=== PATIENT | male | born 1950 | race Caucasian/White ===

== ENCOUNTER 2021-08-01 06:41 | Day surgery (SDC) | payer MEDICARE ==
[~2021-08-01] VITALS: Ht 177.8 cm; Wt 81.2 kg
[2021-08-01] VITALS (15 sets, daily range): BP systolic 125–164; BP diastolic 63–88
[2021-08-01] MEDS ORDERED: normal saline 1000ml 1,000 ML IV SCH (07:05)
[2021-08-01] MEDS ORDERED: LOSA50TA64 PO (07:06)
[2021-08-01] MEDS ORDERED: ROSU10TA28 PO (07:06)
[2021-08-01] MEDS ORDERED: CARV6.253 PO (07:06)
[2021-08-01] MEDS ORDERED: ASPI-1071 PO (07:07)
[2021-08-01] MEDS ORDERED: LIDOcaine 1%/PF 5ML 10 MG/ML VIAL ONE (09:37)
[2021-08-01] MEDS ORDERED: midazolam 1 mg/ML 2ml injection ONE (09:37)
[2021-08-01] MEDS ORDERED: fentaNYL/PF 50MCG/1 ML 2ML syringe ONE (09:37)
[2021-08-01] MEDS ORDERED: sodium chloride 0.45% 1,000 ML IV SCH (10:20)
== END 2021-08-01 14:14 | disposition home or self-care (01) ==
LOC: SSTAY O 06:41
PROVIDERS: ATTEND Radiology Diagnostic Radiology
DX: C45.7 Mesothelioma of other sites (principal); I10 Essential (primary) hypertension; E78.00 Pure hypercholesterolemia, unspecified; Z79.82 Long term (current) use of aspirin; Z79.899 Other long term (current) drug therapy; Z77.090 Contact with and (suspected) exposure to asbestos
CPT/HCPCS: 32408; 71045; J2250; J3010; J3490; 77012; 88305; 88341; 88342

== ENCOUNTER 2024-03-24 09:43 | Outpatient (CLI) | payer OTHER ==
[~2024-03-24] VITALS: Ht 172.7 cm; Wt 86.2 kg
[~2024-03-24 09:43] MED LIST: ASPI-1071 PO; CARV6.253 PO; LOSA50TA64 PO; ROSU10TA72 PO
[2024-03-24] MEDS: albuterol 2.5 MG/3 ML nebule NEB ONE (10:40)
[2024-03-24 10:41] VITALS: PULSE 76; RESP 15; O2SAT 97
[2024-03-24 10:52] VITALS: PULSE 75; RESP 14
== END 2024-03-24 23:59 | disposition home or self-care (01) ==
LOC: RT 09:43
PROVIDERS: ATTEND Chiropractor
DX: J40 Bronchitis, not specified as acute or chronic (principal)
CPT/HCPCS: 71046; 94060; 94760